=== PATIENT | female | born 1995 | race African-American/Black ===

== ENCOUNTER 2020-10-28 04:05 | Inpatient (IN) | payer BC ==
[2020-10-28 05:12] VITALS: BMI 33.8
[2020-10-28] MEDS ORDERED: ELECTROLYTE-148 SOLN 500 ML IV ONE ×2 (05:15→06:15)
[2020-10-28] MEDS ORDERED: AMPICILLIN - 2 GM in SODIUM CHLORIDE 100 ML IVPB ONE (06:00)
[2020-10-28 06:01] LABS: BASO % 0.2 % (0-2.0); EOS % 0.4 % (0-4.5); HEMATOCRIT 33.2 % (32.4-45.2); HEMOGLOBIN 11.2 GM/dL (10.7-15.3); LYMPH % 25.1 % (8-40); MCH 29.2 pg (25.7-33.7); MCHC 33.8 g/dl (32.0-36.0); MEAN CELL VOLUME 86.2 fl (80-96); MEAN PLT VOLUME 8.2 fl (7.5-11.1); MONO % 11.6 % (3.8-10.2); NEUT % 62.7 % (42.8-82.8); PLATELET COUNT 373 K/MM3 (134-434); RBC 3.85 M/mm3 (3.60-5.2); WHITE BLOOD COUNT 7.7 K/mm3 (4.0-10.0)
[2020-10-28] MEDS ORDERED: AMPICILLIN SODIUM 2 GM VIAL ONE (06:01)
[2020-10-28 06:08] LABS: INR 0.93 (0.83-1.09); PROTHROMBIN TIME (PATIENT) 11.3 SEC (9.7-13.0)
[2020-10-28 06:11] LABS: ACTIVATED PTT 27.6 SECONDS (25.2-36.5)
[2020-10-28 06:24] LABS: POTASSIUM 4.2 mmol/L (3.5-5.1)
[2020-10-28 06:25] LABS: CALCIUM 8.8 mg/dL (8.5-10.1)
[2020-10-28 06:29] LABS: CREATININE 0.5 mg/dL (0.55-1.3)
[2020-10-28] MEDS: ELECTROLYTE-148 SOLN 1,000 ML IV SCH (06:30)
[2020-10-28] MEDS ORDERED: PROMETHAZINE HCL 25 MG/1 ML VIAL IVPB ONE (07:01)
[2020-10-28] MEDS ORDERED: BUTORPHANOL TARTRATE 1 MG/ML VIAL IVPUSH ONE (07:01)
[2020-10-28] MEDS ORDERED: PCA PUMP NR ONE (07:30)
[2020-10-28] MEDS ORDERED: FENTANYL/BUPIVACAINE/NS/PF - PCEA - 50 ML DISP.SYRIN EP ONE ×2 (07:31→12:25)
[2020-10-28] MEDS ORDERED: BUTORPHANOL TARTRATE 2 MG/ML VIAL ONE (07:49)
[2020-10-28] MEDS ORDERED: PROMETHAZINE HCL 25 MG/1 ML VIAL ONE (07:50)
[2020-10-28] MEDS: AMPICILLIN - 1 GM in SODIUM CHLORIDE 100 ML IVPB SCH ×3 (10:25→23:42)
[2020-10-28] MEDS ORDERED: AMPICILLIN SODIUM 1 GM VIAL ONE ×2 (10:39→14:07)
[2020-10-28] MEDS ORDERED: BUPIVACAINE HCL/PF 0.25% (2.5MG/ML) 10 ML VIAL ONE (12:39)
[2020-10-28] MEDS ORDERED: OXYTOCIN 30 UNITS in 0.9% NS 30 UNIT/500 ML INFUS.BAG IVPB ONE (14:07)
[2020-10-28] MEDS ORDERED: OXYTOCIN 20 UNITS in 0.9% NS 20 UNIT/1,000 ML INFUS.BAG IV ONE (17:05)
[2020-10-28] MEDS: OXYTOCIN 20 UNITS in 0.9% NS 20 UNIT/1,000 ML INFUS.BAG IV SCH (17:30)
[2020-10-28] MEDS ORDERED: WITCH HAZEL 50% (TUCKS) 40 PAD/JAR PAD TP PRN (17:37)
[2020-10-28] MEDS ORDERED: BENZOCAINE 20% 57 GM BOTTLE TP PRN (17:37)
[2020-10-28] MEDS ORDERED: METHYLERGONOVINE MALEATE 0.2 MG/1 ML AMP IM PRN (17:37)
[2020-10-28] MEDS ORDERED: BISACODYL 10 MG SUPP.RECT RC PRN (17:37)
[2020-10-28] MEDS ORDERED: BENZOCAINE 28 GM HEMORRHOIDAL OINTMENT TP PRN (17:37)
[2020-10-28] MEDS ORDERED: D5W-LR W/ 20 UNITS OXYTOCIN 1,000 ML IV SCH (17:45)
[2020-10-28] MEDS: IBUPROFEN 600 MG TABLET (FP) PO PRN (23:41)
[2020-10-28] MEDS: ACETAMINOPHEN 325 MG TABLET (FP) PO PRN (23:41)
[2020-10-29] MEDS: IBUPROFEN 600 MG TABLET (FP) PO PRN ×2 (06:35→21:54)
[2020-10-29] MEDS: ACETAMINOPHEN 325 MG TABLET (FP) PO PRN ×2 (06:35→21:53)
[2020-10-29] MEDS: FERROUS SO4 325 MG TABLET (FP) PO SCH ×2 (08:49→17:23)
[2020-10-29] MEDS: ELECTROLYTE-148 SOLN 1,000 ML IV SCH (08:54)
[2020-10-29] MEDS: PRENATAL VITAMINS W/ FOLIC ACID TABLET (FP) PO SCH (09:12)
[2020-10-29 09:40] LABS: BASO % 0.2 % (0-2.0); EOS % 0.1 % (0-4.5); HEMATOCRIT 32.7 % (32.4-45.2); HEMOGLOBIN 10.8 GM/dL (10.7-15.3); LYMPH % 11.4 % (8-40); MCH 28.9 pg (25.7-33.7); MCHC 33.2 g/dl (32.0-36.0); MEAN CELL VOLUME 87.1 fl (80-96); MEAN PLT VOLUME 8.3 fl (7.5-11.1); NEUT % 83.3 % (42.8-82.8); PLATELET COUNT 350 K/MM3 (134-434); RBC 3.75 M/mm3 (3.60-5.2); RDW 15.9 % (11.6-15.6); WHITE BLOOD COUNT 14.7 K/mm3 (4.0-10.0)
[2020-10-29] MEDS ORDERED: SENNOSIDES/DOCUSATE COMBO (SENNA PLUS) TABLET (UD) PO PRN (22:00)
[2020-10-29 22:58] VITALS: TEMP 97.5
[2020-10-30] MEDS: PRENATAL VITAMINS W/ FOLIC ACID TABLET (FP) PO SCH (08:59)
[2020-10-30] MEDS: FERROUS SO4 325 MG TABLET (FP) PO SCH (08:59)
[2020-10-30] MEDS: ELECTROLYTE-148 SOLN 1,000 ML IV SCH (09:00)
[2020-10-30] MEDS: OXYTOCIN 20 UNITS in 0.9% NS 20 UNIT/1,000 ML INFUS.BAG IV SCH (09:01)
[2020-10-30 09:04] VITALS: BP 127/82; PULSE 92
== END 2020-10-30 14:00 | disposition home or self-care (01) | DRG 807 ==
LOC: JDEL 04:05 → JLDR 04:40 → J3W 22:28
PROVIDERS: ADMIT Obstetrics & Gynecology; ATTEND Obstetrics & Gynecology
PROC: 10E0XZZ Delivery of Products of Conception, External Approach (ICD-10-PCS; principal; 2020-10-28)
DX: O42.02 Full-term premature rupture of membranes, onset of labor within 24 hours of rupture (principal); Z37.0 Single live birth; O99.824 Streptococcus B carrier state complicating childbirth; O69.81X0 Labor and delivery complicated by cord around neck, without compression, not applicable or unspecified; Z3A.39 39 weeks gestation of pregnancy
CPT/HCPCS: 36415; 59409; 80048; 85025; 85610; 85730; 86780; 86850; 86900; 86901; 87529; C9803; U0003; U0005